=== PATIENT | female | born 1990 | race African-American/Black ===

== ENCOUNTER 2016-10-23 07:51 | Emergency (ER) ==
[2016-10-23] MEDS ORDERED: FIORICET PO ONE (09:35)
[2016-10-23] MEDS ORDERED: ZOFRAN ODT PO ONE (09:35)
--- NOTE | 2016-10-23 09:36 | PROVIDER DOCUMENTATION ---
HPI-General Adult <Nicol Sykes - Last Filed: 10/23/16 09:33> - General Source: patient - History of Present Illness -Gen Adult Nature of Presenting Problems: patient is a 26 y/o F that presents with 2 days of cough,body aches, n/v x 2 days. Location of Pain/Injury: reports: generalized Quality of Pain: reports: aching, cramping Severity: reports: mild Onset/Duration: reports: abrupt, 2 days ago Timing: reports: still present, constant Context/Activities at Onset: reports: none Modifying Factors: improves with: nothing Associated Symptoms: reports: cough, fever/chills, muscle aches, nausea, vomiting. denies: diarrhea, dizziness, genitourinary problems, shortness of breath Similar Symptoms Previously?: No Recently seen or treated by another doctor?: No <Zander Sesay - Last Filed: 10/23/16 10:02> - General Chief Complaint: Flu Symptoms Stated Complaint: FLU LIKE SX Time Seen by Provider: 10/23/16 09:18 Allergies/Adverse Reactions: Patient Allergies Allergy/AdvReac Type Severity Reaction Status Date / Time No Known Allergies Allergy Verified 10/23/16 08:25 Review of Systems - Adult - REVIEW OF SYSTEMS - ADULT Constitutional: reports: chills, fever Ears, Nose, Mouth & Throat: denies: ear discharge, sinus problem, throat pain, throat swelling <Zander Sesay - Last Filed: 10/23/16 10:02> Past History - Adult - PAST MEDICAL HISTORY-ADULT Major Childhood Illnesses: reports: denies history Cardiovascular: reports: denies history Respiratory: reports: denies history Gastrointestinal: reports: denies history Obstetrical/Gynecological: reports: denies history Genitourinary: reports: denies history Musculoskeletal: reports: arthritis Neurological: reports: denies history Endocrine/Immune: reports: denies history Other Conditions: reports: denies history - PRIOR SURGERIES/PROCEDURES Surgical/Procedure History: reports: reviewed, not pertinent - PRIOR HOSPITALIZATIONS Prior Hospitalizations: reports: none - IMMUNIZATION STATUS Childhood Immunizations: UTD, See Nurse Assessment Flu Vaccine: See Nurse Assessment - FAMILY HISTORY Family History: reviewed, not pertinent <Nicol Sykes - Last Filed: 10/23/16 09:33> Physical Exam-General - PHYSICAL EXAM-ADULT Initial Vital Signs Reviewed: Yes - CONSTITUTIONAL General Appearance: alert, no apparent distress - EYES Eyes: PERRL/EOMI, pink conjunctivae - HEAD, EARS, NOSE, MOUTH & THROAT HENMT: normocephalic/atraumatic, moist mucous membranes, normal ENT inspection - NECK Neck: full range of motion, normal inspection - RESPIRATORY Respiratory: lungs clear, normal breath sounds, no respiratory distress, no accessory muscle use - CARDIOVASCULAR Cardiovascular: no edema, no murmur, tachycardia - GASTROINTESTINAL (ABDOMEN) Abdominal Exam: normal bowel sounds, non tender, soft, no organomegaly, no pulsatile mass - MUSCULOSKELETAL Back Exam: no CVA tenderness, no vertebral tenderness Extremity: normal range of motion, normal inspection - SKIN Integumentary: normal color, warm/dry - NEUROLOGIC Neurologic: grossly normal, no motor/sensory deficits - PSYCHIATRIC Psych/Mental Status: normal mood/affect, normal thought content, normal thought process, oriented x 3 <Zander Sesay - Last Filed: 10/23/16 10:02> Progress - PLAN OF CARE/RESULTS Progress/Plan/Lab Results: Orders Category Date Time Status ED: Urine Bedside ORDERED Care 10/23/16 08:30 Active CHEST-2 VIEWS [RAD] Stat Exams 10/23/16 08:13 Taken INFLUENZA SCREEN A/B Stat Lab 10/23/16 08:00 Completed Butalbital/APAP/Caffeine [Fioricet] Med 10/23/16 09:35 Once 1 each PO NOW ONE Ondansetron Odt [Zofran Odt] Med 10/23/16 09:35 Once 4 mg PO NOW ONE Vital Signs Temp Pulse Resp BP Pulse Ox 10/23/16 08:03 98.4 F 118 H 18 128/81 99 No Known Allergies Allergy (Verified 10/23/16 08:25) Amoxicillin/Pot Clavulanate [Augmentin] 875 mg PO Q12HR #14 tablet 10/23/16 Fluticasone 50 Mcg Nasal [place] [Flonase] 1 spray DARRION DAILY #1 bottle 10/23/16 Guaifenesin/D-Methorphan Hb/PE [Deconex Dmx Tablet] 1 each PO TID #30 tablet 03/04 Promethazine [Phenergan] 25 mg PO Q6H PRN PRN #20 tablet 10/23/16 Influenza negative. Discussed results and medication use with pt. - XRAY 1 XRAY Study: Chest XRAY Interpretation: No PNA <Nicol Sykes - Last Filed: 10/23/16 09:33> - PLAN OF CARE/RESULTS Progress/Plan/Lab Results: Vital Signs Temp Pulse Resp BP Pulse Ox 10/23/16 08:03 98.4 F 118 H 18 128/81 99 No Known Allergies Allergy (Verified 10/23/16 08:25) Amoxicillin/Pot Clavulanate [Augmentin] 875 mg PO Q12HR #14 tablet 10/23/16 Fluticasone 50 Mcg Nasal [place] [Flonase] 1 spray DARRION DAILY #1 bottle 10/23/16 Guaifenesin/D-Methorphan Hb/PE [Deconex Dmx Tablet] 1 each PO TID #30 tablet 03/04 Promethazine [Phenergan] 25 mg PO Q6H PRN PRN #20 tablet 10/23/16 Orders Category Date Time Status ED: Urine Bedside ORDERED Care 10/23/16 08:30 Active CHEST-2 VIEWS [RAD] Stat Exams 10/23/16 08:13 Taken INFLUENZA SCREEN A/B Stat Lab 10/23/16 08:00 Completed Butalbital/APAP/Caffeine [Fioricet] Med 10/23/16 09:35 Discontinued 1 each PO NOW ONE Ondansetron Odt [Zofran Odt] Med 10/23/16 09:35 Discontinued 4 mg PO NOW ONE <Zander Sesay - Last Filed: 10/23/16 10:02> Departure - Departure Time of Disposition Order: 09:33 Certified Medical Emergency: Emergent <Nicol Sykes - Last Filed: 10/23/16 09:33> - Departure Time of Disposition Order: 10:01 Certified Medical Emergency: Emergent <Zander Sesay - Last Filed: 10/23/16 10:02> - Departure DIAGNOSIS: Sinusitis Qualifiers: Sinusitis location: unspecified location Chronicity: acute Recurrence: not specified as recurrent Qualified Code(s): J01.90 - Acute sinusitis, unspecified Disposition: HOME 01 Condition: Stable Additional Instructions: Take medications as directed. Return if symptoms get worse. Follow up with PCP in 5-7 days for recheck. Drink plenty of fluids and take tylenol or motrin for fever. ED Follow Up Instructions: You have been treated by a care provider in the Emergency Department. These instructions are being provided to you so you can have an understanding of how to care for yourself upon discharge. Upon discharge from the Emergency Department, you are responsible for making arrangements for follow-up care by a physician of your choice. Take all prescribed medications as directed. Return to the Emergency Department immediately for any new or worsening symptoms. You may call the Physician Referral phone number at [phone] to obtain a list of Physicians who are taking new patients. Prescriptions: Amoxicillin/Pot Clavulanate [Augmentin] 875 mg PO Q12HR #14 tablet Guaifenesin/D-Methorphan Hb/PE [Deconex Dmx Tablet] 1 each PO TID #30 tablet Fluticasone 50 Mcg Nasal [place] [Flonase] 1 spray DARRION DAILY #1 bottle Promethazine [Phenergan] 25 mg PO Q6H PRN PRN #20 tablet PRN Reason: Nausea Referrals: Jason Greenberg MD [Primary Care Provider] - Forms: Return to School/Parent Work Instructions: Sinusitis, [id number] Attestation - Physician/ Mid-level Attestation Patient care was provided by Mid-level provider (HEAD RIGGER/PA):: Yes Mid-level provider:: Nicol Sykes Mid-level documentation review:: The Mid-level provider documentation, treatment plan and medical decision making was reviewed by the physician who agrees with all treatment and medical decision making by the [facility]. <Nicol Sykes - Last Filed: 10/23/16 09:33> - Scribe Verification/Attestation Scribe:: Zander Sesay Acting as Scribe for:: Nicol Sykes Scribe documention review:: This chart was documented by a scribe and accurately reflects the service the provider performed and the decisions made by the provider. - Physician/ Mid-level Attestation Patient care was provided by Mid-level provider (HEAD RIGGER/PA):: Yes Mid-level provider:: Nicol Sykes Mid-level documentation review:: The Mid-level provider documentation, treatment plan and medical decision making was reviewed by the physician who agrees with all treatment and medical decision making by the [facility]. <Zander Sesay - Last Filed: 10/23/16 10:02> Physician Attestation - Physician Attestation I, the provider, attest to the following statement:: Julius Messer Physician documentation Attestation:: This documentation recorded by the scribe accurately reflects the service I personally performed and the decisions made by me. <Zander Sesay - Last Filed: 10/23/16 10:02>
[2016-10-23 10:05] VITALS: BP 121/79
--- NOTE | 2016-10-23 10:12 | Diag Imaging Result Document ---
PROCEDURE NAME: CHEST-2 VIEWS - 10/23/2016 CHEST X-RAY 2 VIEWS: COMPARISON: 12/09/2012. FINDINGS: The lungs are normally expanded and clear. Heart size and mediastinal contours are normal. No pneumothorax or pleural effusion. IMPRESSION: Negative exam.
== END 2016-10-23 10:05 | disposition home or self-care (01) ==
LOC: ED 07:51
DX: J01.90 Acute sinusitis, unspecified (principal); R05 Cough; M79.1 Myalgia; R11.2 Nausea with vomiting, unspecified; R50.9 Fever, unspecified; R00.0 Tachycardia, unspecified; M19.90 Unspecified osteoarthritis, unspecified site
CPT/HCPCS: 71020; 81025; 87804; 99284